=== PATIENT | female | born 1985 | race Two or more races ===

== ENCOUNTER 2019-03-05 12:18 | Emergency (ER) | payer OTHER ==
[~2019-03-05] VITALS: Ht 170.2 cm; Wt 96.6 kg
--- NOTE | 2019-03-05 12:29 | NUR ---
[id number] FROM HOME C/O HEADACHE, N/V/D SINCE THIS AM. ANXIOUS [employer]OR OF [employer] SYSTEMS. VOMIT X 4 TODAY. AMBULATES SLOWLY WITHOUT ASSISTANCE. NO ACUTE DISTRESS NOTED. DENIES DIZZINESS, WEAKNESS. NO OTHER COMPLAINTS AT THIS TIME. URINE SAMPLE OBTAINED AND SENT TO STAT LAB. IN GOWN, MADE COMFORTABLE, AND READY FOR EVAL.
[2019-03-05] MEDS ORDERED: ONDANSETRON HCL/PF 4 MG/2 ML VIAL ONE (13:24)
[2019-03-05 13:27] LABS: APPEARANCE,URINE Clear (CLEAR); BILIRUBIN,URINE Negative (NEGATIVE); BLOOD, URINE Negative Ery/uL (NEGATIVE); COLOR,URINE Yellow (YELLOW); KETONES,URINE Negative (NEGATIVE); LEUKOCYTE ESTERASE ,URINE Small (NEGATIVE); NITRITE, URINE Negative (NEGATIVE); PROTEIN,URINE >=300 mg/dl (NEGATIVE); UGLUCOSE Negative (NEGATIVE); UROBILINOGEN,URINE 0.2 EU/dL (0.2)
[2019-03-05 13:29] LABS: PH,URINE >9.0 (5.0-8.0)
[2019-03-05] MEDS ORDERED: IV NS 0.9% 1,000 ML BAG IV ONE (13:30)
[2019-03-05] MEDS ORDERED: ONDANSETRON HCL/PF 4 MG/2 ML VIAL IVP ONE (13:30)
[2019-03-05 13:35] LABS: BASOPHILS # (AUTO) 0.1 /CMM (0.0-0.2); BASOPHILS % (AUTO) 0.5 % (0.0-2.0); EOSINOPHILS % (AUTO) 1.3 % (0.0-6.0); HEMATOCRIT 38 % (33-45); HEMOGLOBIN 12.9 g/dL (11.5-14.8); LYMPHOCYTES # (AUTO) 1.4 /CMM (0.8-4.8); LYMPHOCYTES % (AUTO) 14.6 % (20.0-44.0); MEAN CORPUSCULAR HGB CONC 34 g/dl (31.0-36.0); MEAN CORPUSCULAR VOLUME 91 fL (82-100); MONOCYTES # (AUTO) 0.7 /CMM (0.1-1.30); MONOCYTES % (AUTO) 7.6 % (2.0-12.0); NEUTROPHILS # (AUTO) 7.2 /CMM (1.8-8.9); PLATELET COUNT (AUTO) 203 /CMM (150-450); RED BLOOD CELL COUNT(AUTO) 4.25 MIL/uL (4.0-5.2); WHITE BLOOD COUNT (AUTO) 9.5 K/uL (4.3-11.0)
[2019-03-05 13:37] LABS: SQUAMOUS EPITHELIAL CELL,UR Moderate /HPF (None Seen)
[2019-03-05 13:38] LABS: BACTERIA,URINE Moderate /HPF (None Seen); RBC,URINE 0-2 /HPF (0-2); WBC,URINE 0-2 /HPF (0-3)
[2019-03-05 13:39] LABS: URINE AMORPHOUS PHOSPHATES Few /HPF (None Seen)
[2019-03-05 13:44] LABS: POTASSIUM 3.7 mmol/L (3.5-5.1)
[2019-03-05] MEDS ORDERED: diphenhydrAMINE HCL 50 MG/ML VIAL ONE (13:56)
[2019-03-05] MEDS ORDERED: METOCLOPRAMIDE HCL 10 MG/2 ML VIAL ONE (13:57)
[2019-03-05] MEDS ORDERED: KETOROLAC TROMETHAMINE INJ 60 MG/2 ML VIAL IM ONE (13:57)
[2019-03-05 13:58] LABS: ALBUMIN 3.5 g/dL (3.4-5.0); BILIRUBIN,TOTAL 0.3 mg/dL (0.2-1.0); TOTAL PROTEIN, SERUM 7.6 g/dL (6.4-8.2)
[2019-03-05] MEDS ORDERED: diphenhydrAMINE HCL 50 MG/ML VIAL IV ONE (14:00)
[2019-03-05] MEDS ORDERED: KETOROLAC TROMETHAMINE INJ 30 MG/ML VIAL IV ONE (14:00)
[2019-03-05] MEDS ORDERED: METOCLOPRAMIDE HCL 10 MG/2 ML VIAL IV ONE (14:00)
--- NOTE | 2019-03-05 14:38 | NUR ---
Patient is resting comfortably in bed with eyes closed. Easily aroused. VSS
--- NOTE | 2019-03-05 14:58 | NUR ---
PER DORINDA SALINAS, COMPLETED PO CHALLENGE FOR PT. PT STATES SHE STILL HAS NAUSEA AFTER SIPPING WATER. PA NOTIFIED
[2019-03-05] MEDS ORDERED: PROCHLORPERAZINE EDISYLATE 10 MG/2 ML VIAL ONE (15:25)
[2019-03-05] MEDS ORDERED: PROCHLORPERAZINE EDISYLATE 10 MG/2 ML VIAL IVP ONE (15:30)
--- NOTE | 2019-03-05 16:00 | NUR ---
PO CHALLENGE COMPLETED SUCCESSFULLY
--- NOTE | 2019-03-05 16:05 | NUR ---
IV removed. Catheter intact and site benign. Pressure and 4x4 applied to site. No bleeding noted.Patient discharged to home in stable condition. Written and verbal after care instructions given. Patient verbalizes understanding of instruction.
[2019-03-05 16:23] VITALS: BP 108/58
== END 2019-03-05 16:05 | disposition home or self-care (01) ==
LOC: ER 12:24
DX: G43.909 Migraine, unspecified, not intractable, without status migrainosus (principal); R11.2 Nausea with vomiting, unspecified; E86.0 Dehydration; R00.0 Tachycardia, unspecified; Z98.890 Other specified postprocedural states; Z88.0 Allergy status to penicillin; Z91.040 Latex allergy status
CPT/HCPCS: 36415; 80048; 80076; 81001; 83690; 84703; 85025; 87086; 93005; 96361; 96374; 96375; 99284; J0780; J1200; J1885; J2405; J2765; J7030; 81000-TC